=== PATIENT | female | born 1990 | race Caucasian/White ===

== ENCOUNTER 2022-04-24 16:42 | Emergency (ER) | payer MEDICAID, SELFPAY ==
[2022-04-24 16:45] VITALS: BP 149/91; PULSE 122; RESP 16; TEMP 36.8; O2SAT 98; BMI 22.4
[2022-04-24 17:17] VITALS: BP 153/100; PULSE 103; O2SAT 100
--- NOTE | 2022-04-24 17:33 | W.ED.GENADLT ---
HPI - General Adult General: Chief complaint: General Medical Stated complaint: Muscle spasms Time Seen by Provider: 04/24/22 17:15 History of Present Illness: Patient is a 31-year-old female comes to the ED with muscle spasms. Muscle spasm episode occurred just prior to arrival. She says she was sitting in a hot car and started getting palpitations, shortness of breath and tingling sensation in her hands bilaterally. She then started feeling muscle spasms in her hands and forearms. This episode lasted for approximately 20 minutes. Here in the ED all symptoms have resolved. She denies any chest pain, diaphoresis, nausea or vomiting during episode. She states that she had a similar episode about a week ago when she was getting really hot outside. Here in the ED she feels completely normal and is at her baseline. Associated symptoms: Reports dyspnea (Episode of shortness of breath, symptoms currently resolved) and palpitations (Episode of palpitations, symptoms have currently resolved); Deny chest pain, headache(s), nausea, rash or vomiting Review of Systems Const: Denies: fever(s), chills or fatigue Eyes: Denies: change in vision or eye discomfort ENMT: Denies: throat pain, odynophagia, nasal discharge or nasal congestion Card: Reports: palpitations (Episode of palpitations, symptoms have currently resolved); Denies: chest pain, edema, swelling of feet/ankles, dyspnea on exertion or orthopnea Resp: Reports: dyspnea (Episode of shortness of breath, symptoms currently resolved); Denies: productive cough or non-productive cough GI: Denies: abdominal pain, nausea, vomiting, diarrhea, constipation or hematochezia : Denies: flank pain, dysuria or hematuria Musc: Reports: muscle cramps (Muscle cramps and spasms in bilateral hands and forearm); Denies: neck pain, back pain or extremity swelling Skin/Breast: Denies: rash or new lesions Neuro: Denies: headache(s), numbness in extremities or weakness in extremities [facility] ED PFSH: Medical History No pertinent family history Surgical History No pertinent past surgical history Female Reproductive History: Date of last menstrual period: 08/18/22 Physical Exam Const: COMMON NORMALS: no acute distress, patient oriented x3, healthy appearing and alert GENERAL APPEARANCE: cooperative and comfortable HENMT: COMMON NORMALS: normocephalic HEAD & SCALP: normocephalic MOUTH: Normal oral and palatal mucosa present THROAT: posterior oropharynx normal and uvula midline Neck/C-Spine: COMMON NORMALS: supple GENERAL: Yes normal visual inspection Resp: COMMON NORMALS: normal respiratory effort, No retractions, No use of accessory muscles and clear to auscultation bilaterally AUSCULTATION: clear to auscultation bilaterally Cardio: COMMON NORMALS: regular rate, regular rhythm, S1 normal heart sound present, S2 normal heart sound present, No gallops present (Cardio), No clicks present (Cardio), No murmurs present (Cardio) and Peripheral pulses 2+ throughout RATE: regular rate RHYTHM: regular rhythm HEART SOUNDS: S1 normal heart sound present and S2 normal heart sound present PERIPHERAL PULSES: Peripheral pulses 2+ throughout GI: COMMON NORMALS: Normal to inspection, nondistended, normoactive bowel sounds present, Soft to palpation, non-tender and no masses PALPATION: Yes Soft to palpation : COMMON NORMALS: Yes no CVA tenderness BLADDER/KIDNEY EXAM: Yes no CVA tenderness Back/Pelvis: COMMON NORMALS: no CVA tenderness Extremity: COMMON NORMALS: normal to inspection Neuro: COMMON NORMALS: patient oriented x3 SENSORIUM/ORIENTATION: Yes alert GAIT: Yes Normal gait present Skin: GENERAL SKIN EXAM: dry skin Course Vital Signs: Vital signs: Vital Signs Temperature 98.2 F 04/24/22 16:45 Pulse Rate 67 04/24/22 19:18 Respiratory Rate 16 04/24/22 16:45 Blood Pressure 131/85 04/24/22 19:18 Pulse Oximetry 97 04/24/22 19:18 Oxygen Delivery Me thod 04/24/22 17:17 [facility] - General Adult Medical Decision Making Patient is a 31-year-old female comes to the ED with an episode of shortness of breath, palpitations, bilateral hand tingling and bilateral hand and forearm muscle spasms. Episode lasted for 20 minutes and resolved by the time she arrived to the ED. She had a similar episode like this approximately a week ago. Denies any past panic attacks. Denies any chest pain or any current symptoms here in the ED. Vitals are stable patient appears nontoxic in no acute distress or pain. Exam of patient is benign. CBC, CMP and magnesium more all normal. hCG negative. EKG showed normal sinus rhythm with no ST segment elevation or depression seen. Patient's symptoms likely due to panic attack. She was told to follow-up with her PCP here in the next 5 to 7 days for reevaluation. Strict return to ED precautions given. Patient understood and agreed with plan. Lab Data I reviewed the patient's lab results. : 04/24/22 17:55 04/24/22 17:55 Laboratory Results WBC 7.8 10^3/uL (4.0-10.0) 04/24/22 17:55 RBC 4.88 10^6/uL (4.1-5.3) 04/24/22 17:55 Hgb 14.5 g/dL (11.5-15.3) 04/24/22 17:55 Hct 43.7 % (37.0-47.0) 04/24/22 17:55 MCV 89.5 fl (81-99) 04/24/22 17:55 MCH 29.7 pg (28.0-34.0) 04/24/22 17:55 MCHC 33.2 g/dL (30.0-36.0) 04/24/22 17:55 RDW 13.4 % (12.1-15.1) 04/24/22 17:55 Plt Count 384 10^3/cmm (130-400) 04/24/22 17:55 MPV 9.3 fL (7.4-10.4) 04/24/22 17:55 Neut % (Auto) 77.8 % 04/24/22 17:55 Lymph % (Auto) 16.0 % 04/24/22 17:55 [place] % (Auto) 4.5 % 04/24/22 17:55 Eos % (Auto) 1.0 % 04/24/22 17:55 Baso % (Auto) 0.4 % 04/24/22 17:55 Neut # (Auto) 6.04 10^3/uL (1.8-7.7) 04/24/22 17:55 Lymph # (Auto) 1.2 10^3/uL (0.8-4.8) 04/24/22 17:55 [place] # (Auto) 0.4 10^3/uL (0.2-0.9) 04/24/22 17:55 Eos # (Auto) 0.1 10^3/uL (0.0-0.8) 04/24/22 17:55 Baso # (Auto) 0.0 10^3/uL (0.0-0.1) 04/24/22 17:55 Nucleated RBC % (auto) 0 % 04/24/22 17:55 Nucleated RBCs # 0.0 /100WBC 04/24/22 17:55 Sodium 136 mmol/L (136-145) 04/24/22 17:55 Potassium 3.6 mmol/L (3.5-5.1) 04/24/22 17:55 Chloride 98 mmol/L (98-107) 04/24/22 17:55 Carbon Dioxide 27 mmol/L (22-29) 04/24/22 17:55 Anion Gap 14.6 (5-19) 04/24/22 17:55 BUN 9 mg/dL (6-20) 04/24/22 17:55 Creatinine 0.5 mg/dL (0.5-0.9) 04/24/22 17:55 GFR Calculation 145.9 mL/min (90-130) H 04/24/22 17:55 Glucose 123 mg/dL (65-115) H 04/24/22 17:55 Calculated Osmolality 282 mOsm/kg (285-295) L 04/24/22 17:55 Calcium 9.2 mg/dL (8.5-10.5) 04/24/22 17:55 Magnesium 2.1 mg/dL (1.7-2.3) 04/24/22 17:55 Total Bilirubin 0.7 mg/dL (0.15-1.2) 04/24/22 17:55 AST 48 U/L (0-32) H 04/24/22 17:55 ALT 83 U/L (0-33) H 04/24/22 17:55 Alkaline Phosphatase 63 U/L (35-105) 04/24/22 17:55 Total Protein 8.0 g/dL (6.6-8.7) 04/24/22 17:55 Albumin 4.8 g/dL (3.5-5.2) 04/24/22 17:55 Globulin 3.2 g/dL (1.3-4.6) 04/24/22 17:55 HCG, Qual Negative (Negative) 04/24/22 17:55 Urine Color Yellow (Yellow) 04/24/22 17: Urine Appearance Hazy (CLEAR) A 04/24/22 17:23 Urine pH 6 (5-7) 04/24/22 17:23 Ur Specific [place] 1.010 (1.005-1.030) 04/24/22 17:23 Urine Protein Neg (Negative) 04/24/22 17:23 Urine Glucose (UA) Norm (Normal) 04/24/22 17:23 Urine Ketones 1+ (Negative) H 04/24/22 17: Urine Blood Trace (Negative) H 04/24/22 17: Urine Nitrate Negative (Negative) 04/24/22 17: Urine Bilirubin Neg (Negative) 04/24/22 17:23 Urine Urobilinogen Norm mg/dL (Negative) 04/24/22 17:23 Ur Leukocyte Esterase Negative (Negative) 04/24/22 17: Urine RBC None /hpf (0-2) 04/24/22 17:23 Urine WBC Rare /hpf (0-5) 04/24/22 17:23 Ur Squamous Epith Cells 5-10 /hpf (0-5) H 04/24/22 17: Amorphous Sediment Not Reportable 04/24/22 17:23 Urine Bacteria 1+ /hpf (NONE) H 04/24/22 17:23 Urine Mucus 3+ /hpf 04/24/22 17:23 EKG Data EKG 1: EKG interpretation date: 04/24/22 Interpretation: Sinus rhythm, 87 bpm, no ST segment elevation or depression seen. Discharge Plan Discharge Patient Disposition: Home Clinical Impression: Panic attack Condition: Stable Discharge Orders: Discharge ED (Routine); Ordered 04/24/22 Ordered By: Tesfaye Jack Discharge Diet: Regular Discharge Activity: Increase activity as tolerated Patient Instructions: Panic Attack (ED) Activity Restrictions/Additional Instructions: Follow-up with primary care physician within the next 7 to 10 days for reevaluation. Practice some slow deep breathing exercises if you feel any reoccurring panic attack symptoms to help prevent it from getting worse. Return to the ER or your medical provider if condition worsens. Please read and understand discharge instructions. Thank you for choosing [facility] for your healthcare needs today. Please realize this is an emergency room and that we are providing you with a medical screening exam and this may not be complete and all inclusive of all the testing and or work up that you may need to determine your ailment or severity of your illness. It is very important that you follow up as instructed or that you return to the Emergency Department should you have concerns or if your condition changes or worsens in any way. Coding Level of Care Code ED Information Systems Security Specialist for Darryl Cox Exam Comprehensive
[2022-04-24 17:38] LABS: Add Urine Microscopic? YES; Bilirubin Urine Neg (Negative); Blood Urine Trace (Negative); Glucose Urine UA Norm (Normal); Ketones Urine 1+ (Negative); Leukocyte Esterase Urine Negative (Negative); Nitrate Urine Negative (Negative); Protein Urine Neg (Negative); Urine Appearance Hazy (CLEAR); Urine Color Yellow (Yellow); Urobilinogen Urine Norm (Negative); pH Urine 6 (5-7)
[2022-04-24 17:39] LABS: WBC Urine RARE /hpf (0-5)
[2022-04-24 17:40] LABS: Add Urine Culture? No; Bacteria Urine 1+ /hpf; Mucus Urine 3+ /hpf
--- NOTE | 2022-04-24 17:45 | ECG_ITS ---
[facility] Test Date: 2022-04-24 Pat Name: Andreea Alfaro Department: Room: Gender: Female Oncology Radiation Physician: : [id number] Requested By: Tesfaye Jack Order Number: [id number] Gomes MD: Cindy Sanchez M.D. Measurements Intervals [place] Rate: 87 P: 81 [place]: 148 QRS: 92 QRSD: 89 T: 75 QT: 331 QTc: 399 Interpretive Statements SINUS RHYTHM POSSIBLE LEFT ATRIAL ENLARGEMENT [-0.1mV P-WAVE IN V1/V2] BORDERLINE RIGHT AXIS DEVIATION [QRS AXIS > 90] No previous ECG available for comparison Electronically Signed On 04-26-2022 8:01:57 CDT by Cindy Sanchez M.D. [id number]
[2022-04-24 18:05] LABS: Basophils % 0.4 %; Eosinophils # 0.1 10^3/uL (0.0-0.8); Hematocrit 43.7 % (37.0-47.0); Hemoglobin 14.5 g/dL (11.5-15.3); Lymphocytes # 1.2 10^3/uL (0.8-4.8); Mean Corpuscular HGB Conc 33.2 g/dL (30.0-36.0); Mean Corpuscular Hemoglobin 29.7 pg (28.0-34.0); Mean Corpuscular Volume 89.5 fl (81-99); Mean Platelet Volume 9.3 fL (7.4-10.4); Monocytes # 0.4 10^3/uL (0.2-0.9); Monocytes % 4.5 %; Neutrophils # 6.04 10^3/uL (1.8-7.7); Neutrophils % 77.8 %; Nucleated Red Blood Cells % 0 %; Platelet Count 384 10^3/cmm (130-400); Red Blood Count 4.88 10^6/uL (4.1-5.3); Red Cell Distribution Width 13.4 % (12.1-15.1); White Blood Count 7.8 10^3/uL (4.0-10.0)
[2022-04-24 18:32] LABS: Alanine Aminotransferase 83 U/L (0-33); Albumin Level 4.8 g/dL (3.5-5.2); Alkaline Phosphatase 63 U/L (35-105); Anion Gap 14.6 (5-19); Aspartate Amino Transferase 48 U/L (0-32); Blood Urea Nitrogen 9 mg/dL (6-20); Calcium 9.2 mg/dL (8.5-10.5); Carbon Dioxide 27 mmol/L (22-29); Chloride 98 mmol/L (98-107); Globulin 3.2 g/dL (1.3-4.6); Glomerular Filtration Rate 145.9 mL/min (90-130); Glucose 123 mg/dL (65-115); Magnesium 2.1 mg/dL (1.7-2.3); Osmolality Calculated 282 mOsm/kg (285-295); Potassium 3.6 mmol/L (3.5-5.1); Sodium 136 mmol/L (136-145); Total Bilirubin 0.7 mg/dL (0.15-1.2)
[2022-04-24 18:37] LABS: HCG, Serum Qual Negative (Negative)
[2022-04-24 19:18] VITALS: BP 131/85; PULSE 67; O2SAT 97
--- NOTE | 2022-04-29 15:19 | DCPLANNER ---
Addendum entered by Alberta Hinojosa 05/20/22 09:12: Patient had follow up to establish care with Dr. Jason at [facility] - patient did attend appointment. Original Note: Patient called porter sample case asking about getting a primary care physician. manager women offered to call and get patient an appointment with Dr. Jason. Patient was agreeable with this. manager women called [facility] spoke with Karina, gave clinic patients information. A follow up appointment was scheduled for May at 9:[address] Jason. manager women gave patient the appointment information.
== END 2022-04-24 19:10 | disposition home or self-care (01) ==
PROVIDERS: Emergency Provider Physician Assistant
DX: F41.0 Panic disorder [episodic paroxysmal anxiety] (principal)
CPT/HCPCS: 80053; 81001; 83735; 84703; 85025; 93005; 99284

== ENCOUNTER → 2022-05-13 10:01 | Outpatient (BNVA) | payer MEDICAID, SELFPAY | PROVIDERS: PCP Family Medicine; Visit Provider Family Medicine | DX: F41.1 Generalized anxiety disorder (principal); F41.0 Panic disorder [episodic paroxysmal anxiety]; R79.89 Other specified abnormal findings of blood chemistry | CPT/HCPCS: 80053; 84443 ==

== ENCOUNTER → 2024-01-30 18:05 | Outpatient (BNVA) | payer MEDICAID, SELFPAY | PROVIDERS: PCP Family Medicine; Visit Provider Registered Nurse Neonatal Intensive Care | DX: R30.0 Dysuria (principal) | CPT/HCPCS: 81000; 87077; 87086; 87184 ==

== ENCOUNTER 2025-03-03 21:38 | Emergency (ER) | payer MEDICAID, SELFPAY ==
--- OUTSIDE RECORDS SUMMARY | 2025-03-03 21:46 | XMS_ITS | Encounter Summary ---
Author Organization [facility] Address [address] [place] [address] Care Team Providers Care Cell Coverer Name Role Phone Unavailable Primary Care Provider Unavailabl e Encounter Details Date Type Department Care Team (Latest Contact Info) Description 03/07/2014 Ancillary Orders [facility] Oral and Maxillo Surgery- [address] [place] [address] Sha Allen Jr., DMD NO ADDRESS ON FILE Disturbances in tooth eruption (Primary Dx) Social History Tobacco Use Types Packs/Day Years Used Date Smoking Tobacco: Never Smokeless Tobacco: Never Alcohol Use Standard Drinks/Week Comments No 0 (1 standard drink = 0.6 oz pur e alcohol) Comments No Sex and Gender Information Value Date Recorded Sex Assigned at Not on file Legal Sex Female 12:02 PM CDT Gender Identity Not on file Sexual Orientation Not on file documented as of this encounter Plan of Treatment Not on file documented as of this encounter Results * XR PANOREX (03/07/2014 10:36 AM CDT) Anatomical Region Laterality Modality Head Computed Radiogr aphy Narrative 06/02/2014 4:46 PM CDT Panoramic Findings: impacted wisdom teeth Recommendation: remove teeth Procedure Note Sha Allen Jr., DMD - 06/02/2014 Panoramic Findings: impacted wisdom teeth Recommendation: remove teeth Sha Allen Jr., DMD DIAGNOSTIC IMAGING ORDERABLES Final Result documented in this encounter Visit Diagnoses Diagnosis Disturbances in tooth eruption- Primary documented in this encounter
--- OUTSIDE RECORDS SUMMARY | 2025-03-03 21:46 | XMS_ITS | Clinical Summary ---
Author Organization [facility] Address [address] [place] [address] Care Team Providers Care Sorting Machine Operator Name Role Phone Unavailable Primary Care Provider Unavailabl e Allergies No known active allergies Medications ibuprofen (MOTRIN) 800 mg tablet Take 1 Tab by mouth every 6 hours as needed for Pain, Mild. 21 Tab 0 03/07/2014 Active oxyCODONE-acetam inophen (PERCOCET) 5-325 mg tablet Take 1 Tab by mouth every 4 hours as needed for Pain, Moderate. 30 Tab 0 03/07/2014 Active chlorhexidine gluconate 0.12 % Mouthwash 15 mL by Mouth/Throa t route 2 times daily. Swish and spit. 473 mL 0 03/07/2014 Active penicillin V potassium (VEETID) 500 mg tablet Take 1 Tab by mouth 4 times daily. 28 Tab 0 03/07/2014 Active HYDROcodone-acet aminophen (NORCO) 5-325 mg tablet Take 1 Tab by mouth every 4 hours as needed. Active Active Problems Problem Noted Date Diagnosed Date Dental impaction 03/07/2014 Social History Tobacco Use Types Packs/Day Years Used Date Smoking Tobacco: Never Smokeless Tobacco: Never Alcohol Use Standard Drinks/Week Comments No 0 (1 standard drink = 0.6 oz pur e alcohol) Comments No Sex and Gender Information Value Date Recorded Sex Assigned at Not on file Legal Sex Female 12:02 PM CDT Gender Identity Not on file Sexual Orientation Not on file Last Filed Vital Signs Vital Sign Reading Time Taken Comments Blood Pressure 125/77 03/07/2014 10:28 AM CDT Pulse 66 03/07/2014 10:28 AM CDT Temperature - - Respiratory Rate - - Oxygen Saturation 99% 03/07/2014 10:28 AM CDT Inhaled Oxygen Concentration - - Weight 64.4 kg (142 lb) 03/07/2014 10:28 AM CDT Height 165.1 cm (5' 5 ) 03/07/2014 10:28 AM CDT Body Mass Index 23.63 03/07/2014 10:28 AM CDT Plan of Treatment Health Maintenance Due Date Last Done Comments DTAP/TDAP/TD VACCINES (1 - Tdap) 2011 HEPATITIS B VACCINES (1 of 3 - 19+ 3-dose series) 2011 HPV/Cotest (21-29) 2013 CERVICAL CANCER SCREENING 2022 HPV/Cotest (30-65) 2022 PAP SMEAR 2022 INFLUENZA VACCINE (#1) 2024 HPV VACCINES Aged Out No longer eligi ble based on patient's age to complete this topic Insurance [place]
[2025-03-03 21:48] VITALS: BP 153/109; PULSE 87; RESP 14; TEMP 36.7; O2SAT 100; BMI 24.1
[2025-03-04 00:35] VITALS: BP 179/108; PULSE 101; RESP 16; O2SAT 98
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
[2025-03-04] MEDS: oxyCODONE-APAP 5-325 mg Tablet 2 TAB PO (01:28)
[2025-03-04] MEDS: ondansetron 4 MG Tablet PO (01:28)
[2025-03-04 02:16] VITALS: BP 135/85; PULSE 73; RESP 16; O2SAT 99
[2025-03-04 02:29] VITALS: BP 135/85; PULSE 76; RESP 16; O2SAT 99
== END 2025-03-04 02:29 | disposition home or self-care (01) ==
PROVIDERS: Emergency Provider Emergency Medicine
DX: S00.03XA Contusion of scalp, initial encounter (principal); S60.211A Contusion of right wrist, initial encounter; Z87.891 Personal history of nicotine dependence; V49.50XA Passenger injured in collision with unspecified motor vehicles in traffic accident, initial encounter; S00.81XA Abrasion of other part of head, initial encounter
CPT/HCPCS: 70450; 73110; 99284; J9999; Q0162

== ENCOUNTER 2025-04-15 17:56 | Emergency (ER) | payer MEDICAID, SELFPAY ==
[2025-04-15 18:14] VITALS: BP 138/83; PULSE 101; RESP 16; TEMP 37; O2SAT 98; BMI 25.0
[2025-04-15 18:50] VITALS: BP 137/110; PULSE 87; O2SAT 100
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
[2025-04-15] MEDS: orphenadrine 30 mg/mL Inj 2 mL 60 MG IM (19:15)
[2025-04-15] MEDS: Fleet Enema 133 mL Enema XX (19:16)
[2025-04-15 20:31] VITALS: BP 131/87; PULSE 75; O2SAT 99
[2025-04-15 21:39] VITALS: BP 129/91; PULSE 79; O2SAT 98
[2025-04-15 22:08] VITALS: BP 127/85; PULSE 81; O2SAT 98
[2025-04-15 22:20] VITALS: RESP 18; O2SAT 97
[2025-04-15] MEDS: ondansetron hcl ODT 4 mg Tab PO (22:20)
[2025-04-15] MEDS: morphine 4 mg/mL SDV 1 mL IM (22:20)
--- OUTSIDE RECORDS SUMMARY | 2025-04-17 12:17 | XMS_ITS | Encounter Summary ---
Author Organization [facility] Address [address] [place] [address] Care Team Providers Care Ventilated Rib Fitter Name Role Phone Unavailable Primary Care Provider Unavailabl e Encounter Details Date Type Department Care Team (Latest Contact Info) Description 03/07/[address] [facility]- [address] [place] [address] Sha Allen Jr., DMD NO [...]
--- OUTSIDE RECORDS SUMMARY | 2025-04-17 12:17 | XMS_ITS | Clinical Summary ---
Author Organization [facility] Address [address] [place] [address] Care Team Providers Care Ell Tutor Name Role Phone Unavailable Primary Care Provider [...] Health Maintenance Due Date Last Done Comments HPV VACCINES (1 - 3-dose series) 2007 DTAP/TDAP/TD VACCINES (1 - Tdap) 2011 HEPATITIS B VACCINES (1 of 3 - 19+ 3-dose series) 08/06 HPV/Cotest (21-29) 2013 CERVICAL CANCER SCREENING 2022 HPV/Cotest (30-65) 2022 PAP SMEAR 2022 INFLUENZA VACCINE (#1) 2025 Insurance MEDICAID [place]
== END 2025-04-15 22:58 | disposition home or self-care (01) ==
PROVIDERS: Emergency Provider Physician Assistant; PCP Nurse Practitioner
DX: H65.91 Unspecified nonsuppurative otitis media, right ear (principal); G44.209 Tension-type headache, unspecified, not intractable; Z87.891 Personal history of nicotine dependence
CPT/HCPCS: 96372; 99284; J1885; J2270; J2360; J9999; Q0162

== ENCOUNTER → 2025-04-23 12:06 | Outpatient (BNVA) | payer MEDICAID, SELFPAY | PROVIDERS: PCP Nurse Practitioner; Visit Provider Nurse Practitioner | DX: E55.9 Vitamin D deficiency, unspecified (principal); F41.1 Generalized anxiety disorder; F41.0 Panic disorder [episodic paroxysmal anxiety] | CPT/HCPCS: 80053; 82306; 82607; 84443 ==

== ENCOUNTER 2025-06-28 16:12 | Outpatient (CLI) | payer MEDICAID, SELFPAY ==
[2025-06-28 17:05] LABS: Free T4 Free Thyroxine 1.00 ng/dL (0.82-1.77); Thyroid Stimulating Hormone 4.11 uIU/mL (0.27-4.20)
== END 2025-06-28 16:13 | disposition home or self-care (01) ==
LOC: LAB 16:15
PROVIDERS: PCP Nurse Practitioner; Visit Provider Nurse Practitioner
DX: E03.9 Hypothyroidism, unspecified (principal)
CPT/HCPCS: 36415; 84439; 84443; 84481